=== PATIENT | male | born 1995 | race Caucasian/White ===

== ENCOUNTER 2020-11-21 20:05 | Emergency (ER) | payer SELFPAY ==
[~2020-11-21] VITALS: Ht 193 cm; Wt 80.6 kg
[2020-11-21 20:52] LABS: BASO % 0 % (0-3); EOS # 0.1 x10^3/uL (0.0-0.7); EOS % 1 % (0-3); HEMATOCRIT 41.2 % (39.0-53.0); HEMOGLOBIN 14.2 g/dL (13.0-17.5); LYMPH # 1.6 x10^3/uL (1.0-4.8); LYMPH % 20 % (24-48); MEAN CORPUSCULAR HEMOGLOBIN 32 pg (25-35); MEAN CORPUSCULAR HGB CONC 35 g/dL (31-37); MEAN CORPUSCULAR VOLUME 93 fL (79-100); MONO # 0.9 x10^3/uL (0.0-1.1); MONO % 11 % (0-9); NEUT # 5.6 x10^3/uL (1.8-7.7); NEUT % 69 % (31-73); PLATELET COUNT 205 x10^3/uL (140-400); RED BLOOD COUNT 4.42 x10^6/uL (4.30-5.70); RED CELL DISTRIBUTION WIDTH 13.2 % (11.5-14.5); WHITE BLOOD COUNT 8.1 x10^3/uL (4.0-11.0)
[2020-11-21 21:04] LABS: CALCIUM 9.2 mg/dL (8.5-10.1); GFR 90.3; POTASSIUM 3.5 mmol/L (3.5-5.1)
[2020-11-21 21:11] LABS: ALBUMIN 4.5 g/dL (3.4-5.0); ALBUMIN/GLOBULIN RATIO 1.6 (1.0-1.7); TOTAL BILIRUBIN 1.2 mg/dL (0.2-1.0); TOTAL PROTEIN 7.4 g/dL (6.4-8.2)
[2020-11-21 21:20] VITALS: BP 139/74
[2020-11-21] MEDS ORDERED: ONDANSETRON PF 4 MG/2 ML VIAL. IV ONE (21:30)
[2020-11-21] MEDS ORDERED: IV NORMAL SALINE 1000ML BAG 1,000 ML IV ONE (21:30)
[2020-11-21] MEDS ORDERED: PANTOPRAZOLE IV PUSH 40 MG VIAL. IVP ONE (21:30)
--- NOTE | 2020-11-21 22:45 | RAD ---
EXAM: 2 VIEW ABDOMEN WITH ONE VIEW CHEST. HISTORY: Abdominal pain and vomiting. COMPARISON: None. FINDINGS: A frontal view of the chest and supine/upright views of the abdomen are obtained. There are no confluent infiltrates. There is no pneumothorax or pleural effusion. The heart is not en larged. There is no pneumoperitoneum. There are no distended small bowel loops or significant air-fluid level s. There is gas distally. Stool in the right colon suggests mild constipation. IMPRESSION: 1. No confluent infiltrates. 2. No evidence of obstruction. Correlate for mild constipation. Electronically signed by: Annika Gupta MD (11/21/2020 10:43 PM) [facility]
[2020-11-21] MEDS ORDERED: OMEP20TA63 PO (22:55)
[2020-11-21] MEDS ORDERED: SUCR1TAB35 PO (22:55)
--- NOTE | 2020-11-21 22:56 | ED.ADGEN ---
Past Medical History Past Medical History: Asthma Past Surgical History: Appendectomy, Tonsillectomy Smoking Status: Never Smoker Drug Use: None General Adult EDM: Chief Complaint: HEMATEMESIS/VOMITING BLOOD HPI: HPI: Patient is a 25 year old male who presents to the ER with complaints of epigastric abd pain and vomiting bright red blood x2 tonight at work. Pt states that he works doing [employer] and felt a little nauseated all day until this evening when he suddenly vomited. Pt reports the last thing he ate was peaches and some fruit snacks around noon. He reports that bright red blood was in his vomit. He denies any hx of stomach ulcers, nose bleeds, nasal congestion. alcool use, or illicit drug use. Pt denies any chest pain, shortness of breath, fever, cough, body aches, dizziness, syncope, palpitations, back pain, numbness, tingling, or weakness, Pt denies any tobacco use for the last year, he states that he quit drinking alcohol about 2 years ago. Pt admits to drinking a lot of coffee. He states that the blood was bright red and denies any appearance of coffee grounds in his vomit. He currently rates his epigastric pain a 7/10 on the pain scale. Review of Systems: Review of Systems: Complete ROS is negative unless otherwise documented in the HPI Current Medications: Current Medications Medications (Trade) Dose Ordered Sig/Timothy Start Time Stop Time Status Last Admin Dose Admin Ondansetron HCl (Zofran) 4 mg 1X ONCE 11/21/20 21:30 11/21/20 21:31 DC 11/21/20 21:14 4 MG Pantoprazole Sodium (PROTONIX VIAL for IV PUSH) 40 mg 1X ONCE 11/21/20 21:30 11/21/20 21:31 DC 11/21/20 21:13 40 MG Sodium Chloride 1,000 ml @ 1,000 mls/hr 1X ONCE 11/21/20 21:30 11/21/20 22:29 DC 11/21/20 21:13 1,000 MLS/HR Allergies: Allergies: Allergies Coded Allergies Type Severity Reaction Last Updated Verified No Known Drug Allergies 11/21/20 No Physical Exam: PE: Constitutional: Well developed, well nourished, no acute distress, non-toxic appearance, appears anxious. [] HENT: Normocephalic, atraumatic, bilateral external ears normal, oropharynx moist, no oral exudates, nose normal. [] Eyes: PERRLA, EOMI, conjunctiva normal, no discharge. [] Neck: Normal range of motion, no stridor. [] Cardiovascular:Heart rate regular rhythm Lungs & Thorax: respirations even and unlabored, no wheezing, no retractions, regular rate Abdomen: soft, epigastric TTP, no rebound tenderness, no guarding, no masses, no pulsatile masses. [] Skin: Warm, dry, no erythema, no rash. [] Back: No tenderness Extremities: No cyanosis, ROM intact, no edema. [] Neurologic: Alert and oriented X 3, normal motor function, normal sensory function, no focal deficits noted. [] Psychologic: Affect normal, judgement normal, mood normal. [] Current Patient Data: Labs: Laboratory Tests Test 11/21/20 20:30 White Blood Count 8.1 x10^3/uL (4.0-11.0) Red Blood Count 4.42 x10^6/uL (4.30-5.70) Hemoglobin 14.2 g/dL (13.0-17.5) Hematocrit 41.2 % (39.0-53.0) Mean Corpuscular Volume 93 fL (79-100) Mean Corpuscular Hemoglobin 32 pg (25-35) Mean Corpuscular Hemoglobin Concent 35 g/dL (31-37) Red Cell Distribution Width 13.2 % (11.5-14.5) Platelet Count 205 x10^3/uL (140-400) Neutrophils (%) (Auto) 69 % (31-73) Lymphocytes (%) (Auto) 20 % (24-48) L Monocytes (%) (Auto) 11 % (0-9) H Eosinophils (%) (Auto) 1 % (0-3) Basophils (%) (Auto) 0 % (0-3) Neutrophils # (Auto) 5.6 x10^3/uL (1.8-7.7) Lymphocytes # (Auto) 1.6 x10^3/uL (1.0-4.8) Monocytes # (Auto) 0.9 x10^3/uL (0.0-1.1) Eosinophils # (Auto) 0.1 x10^3/uL (0.0-0.7) Basophils # (Auto) 0.0 x10^3/uL (0.0-0.2) Sodium Level 144 mmol/L (136-145) Potassium Level 3.5 mmol/L (3.5-5.1) Chloride Level 105 mmol/L (98-107) Carbon Dioxide Level 28 mmol/L (21-32) Anion Gap 11 (6-14) Blood Urea Nitrogen 18 mg/dL (8-26) Creatinine 1.0 mg/dL (0.7-1.3) Estimated GFR (Cockcroft-Gault) 90.3 BUN/Creatinine Ratio 18 (6-20) Glucose Level 135 mg/dL (70-99) H Calcium Level 9.2 mg/dL (8.5-10.1) Magnesium Level 2.0 mg/dL (1.8-2.4) Total Bilirubin 1.2 mg/dL (0.2-1.0) H Aspartate Amino Transferase (AST) 24 U/L (15-37) Alanine Aminotransferase (ALT) 32 U/L (16-63) Alkaline Phosphatase 60 U/L (46-116) Total Protein 7.4 g/dL (6.4-8.2) Albumin 4.5 g/dL (3.4-5.0) Albumin/Globulin Ratio 1.6 (1.0-1.7) Lipase 49 U/L (73-393) L Laboratory Tests 11/21/20 20:30 Laboratory Tests 11/21/20 20:30 Vital Signs: Vital Signs Date Time Temp Pulse Resp B/P (MAP) Pulse Ox O2 Delivery O2 Flow Rate FiO2 11/21/20 21:20 80 19 139/74 (95) 97 Room Air 11/21/20 20:30 98.6 98.6 EKG: EKG: [] Heart Score: C/O Chest Pain: No Risk Scores: Score 0 - 3: 2.5% MACE over next 6 weeks - Discharge Home Score 4 - 6: 20.3% MACE over next 6 weeks - Admit for Clinical Observation Score 7 - 10: 72.7% MACE over next 6 weeks - Early Invasive Strategies Radiology/Procedures: Radiology/Procedures: PROCEDURE: ACUTE ABDOMEN SERIES EXAM: 2 VIEW ABDOMEN WITH ONE VIEW CHEST. HISTORY: Abdominal pain and vomiting. COMPARISON: None. FINDINGS: A frontal view of the chest and supine/upright views of the abdomen are obtained. There are no confluent infiltrates. There is no pneumothorax or pleural effusion. The heart is not enlarged. There is no pneumoperitoneum. There are no distended small bowel loops or significant air-fluid levels. There is gas distally. Stool in the right colon suggests mild constipation. IMPRESSION: 1. No confluent infiltrates. 2. No evidence of obstruction. Correlate for mild constipation. Electronically signed by: Annika Gupta MD (11/21/2020 10:43 PM) [facility] [] Course & Med Decision Making: Course & Med Decision Making Pertinent Labs and Imaging studies reviewed. (See chart for details) Pt presented to the ER with reports of vomiting blood x2 just prior to arrival and nausea CBC and CMP are unremarkable, low suspicion acute abdominal process. PT's VSS, Acute abd series reveals no acute findings. prescriptions written for carafate qid x 14 days and prilosec 20 mg po bid x 30 days. recommend clear liquids, avoid red dyes for 24 hours then advance as tolerated starting with bland foods. Follow up with Dr. dominguez with GI Return to ER if fever develops, or symptoms worsen Pt verbalized an understanding of d/c instructions, medication, follow- up and return precautions and was in agreement with the POC. [] Dragon Disclaimer: Dragon Disclaimer: This electronic medical record was generated, in whole or in part, using a voice recognition dictation system. Departure Departure Impression: Primary Impression: Epigastric abdominal pain Additional Impressions: Hematemesis Nausea & vomiting Disposition: HOME / SELF CARE / HOMELESS Condition: STABLE Referrals: ERNESTINE DOMINGUEZ MD Patient Instructions: Abdominal Pain (Nonspecific), Hematemesis, Nausea and Vomiting, [id number] Additional Instructions: Fill the prescriptions and use as directed. Clear liquid diet for the first 24 hours then advance diet as tolerated starting with bland foods such as bananas, rice, applesauce, and dry toast. Call Dr. Dominguez's office in the morning for follow up appointment. Return to the ER if symptoms worsen, or fever develops. Scripts Omeprazole Magnesium (PRILOSEC OTC) 20 Mg Tablet. 20 MG PO BID for 30 Days, #60 TAB 0 Refills Prov: SUZANNE RIVERA [employer] (EX ) 11/21/20 Sucralfate (CARAFATE) 1 Gm Tablet 1 TAB PO QID for 14 Days, #56 TAB 0 Refills Prov: SUZANNE RIVERA [employer] (EX ) 11/21/20 Attending Signature Attending Signature I have participated in the care of this patient and I have reviewed and agree with all pertinent clinical information above including history, exam, and recommendations. Problem Qualifiers Additional Impressions: Hematemesis Nausea presence: with nausea Qualified Codes: K92.0 - Hematemesis Nausea & vomiting Vomiting type: unspecified Vomiting Intractability: non-intractable Qualified Codes: R11.2 - Nausea with vomiting, unspecified SUZANNE RIVERA APRN Nov 21, 2020 22:56 STACEY ORTEGA DO Nov 22, 2020 13:20
== END 2020-11-21 23:10 | disposition home or self-care (01) ==
LOC: ER 20:05
DX: R10.13 Epigastric pain (principal); K92.0 Hematemesis; J45.909 Unspecified asthma, uncomplicated; Z90.89 Acquired absence of other organs
CPT/HCPCS: 36415; 74022; 80053; 83690; 83735; 85025; 96361; 96374; 96375; 99285; C9113; J2405; J7030